=== PATIENT | male | born 1950 | race Caucasian/White ===

== ENCOUNTER 2017-07-22 00:23 | Inpatient (IN) | payer MEDICARE, MEDICAID ==
[~2017-07-22] VITALS: Ht 172.7 cm; Wt 58.5 kg
[2017-07-22] MEDS ORDERED: LISINOPRIL (01:14)
[2017-07-22 02:12] LABS: BASOPHILS # (AUTO) 0.03 x10^3/uL (0-0.1); BASOPHILS % (AUTO) 0 % (0-1); EOSINOPHILS # (AUTO) 0.18 x10^3/uL (0-0.4); EOSINOPHILS % (AUTO) 2 % (1-7); LYMPHOCYTES # (AUTO) 1.33 x10^3/uL (1-3.4); LYMPHOCYTES % (AUTO) 12 % (22-44); MD NO; MEAN CORPUSCULAR HEMOGLOBIN 29.9 pg (27.5-34.5); MEAN CORPUSCULAR HGB CONC 32.1 g/dL (33.2-36.2); MEAN CORPUSCULAR VOLUME 93.1 fL (81-97); MEAN PLATELET VOLUME 7.5 fL (7.4-10.4); MONOCYTES # (AUTO) 1.26 x10^3/uL (0.2-0.8); MONOCYTES % (AUTO) 11 % (2-9); NEUTROPHILS # (AUTO) 8.49 x10^3/uL (1.8-6.8); NEUTROPHILS % (AUTO) 75 % (42-75); PLATELET COUNT 304 x10^3/uL (130-400); RED BLOOD COUNT 4.25 x10^6/uL (4.38-5.82); RED CELL DISTRIBUTION WIDTH 16.7 % (9.4-14.8)
[2017-07-22 02:17] LABS: INTERNATIONAL NORMALIZED RATIO 1.04 (0.93-1.1); PROTHROMBIN TIME 10.7 Seconds (9.6-11.5)
[2017-07-22 02:21] LABS: ALANINE AMINOTRANSFERASE 51 U/L (12-78); ALBUMIN 2.2 g/dL (3.4-5.0); ANION GAP 9 mmol/L (5-15); CALCIUM 8.3 mg/dL (8.5-10.1); CHLORIDE 106 mmol/L (98-107); CREATININE 0.98 mg/dL (0.7-1.3)
[2017-07-22 02:35] LABS: ALKALINE PHOSPHATASE 1129 U/L (45-117); BILIRUBIN,TOTAL 0.6 mg/dL (0.2-1.0); TOTAL PROTEIN 6.9 g/dL (6.4-8.2)
[2017-07-22] MEDS ORDERED: SODIUM CHLORIDE 0.9% 1,000 ML IV ONE (05:56)
[2017-07-22] MEDS ORDERED: ONDANSETRON 2MG/ML, 2ML IVPush ONE (06:00)
[2017-07-22] MEDS ORDERED: MORPHINE SULFATE 4 MG/ML, 1ML IVPush PRN (06:00)
[2017-07-22 06:13] LABS: MICROSCOPIC INDICATED
[2017-07-22 06:14] LABS: CULTURE INDICATED? NO
[2017-07-22] MEDS ORDERED: OMNIPAQUE 350 MG/ML, 100ML BOTTLE ONE (06:41)
[2017-07-22] MEDS ORDERED: SODIUM CHLORIDE 0.9% 1,000 ML IV SCH (07:57)
[2017-07-22] MEDS ORDERED: POLYETHYLENE GLYCOL 17 GM PACKET PO PRN (08:00)
[2017-07-22] MEDS ORDERED: morphine SULFATE 10 MG/ML, 1ML IVPush PRN (08:00)
[2017-07-22] MEDS ORDERED: LABETALOL 5MG/ML, 20ML IVPush PRN (08:00)
[2017-07-22] MEDS ORDERED: GUAIFENESIN/DM 200-20MG, 10ML UDC PO PRN (08:00)
[2017-07-22 08:16] VITALS: BP 127/79
[2017-07-22 08:44] LABS: INTERNATIONAL NORMALIZED RATIO 1.04 (0.93-1.1); PROTHROMBIN TIME 10.7 Seconds (9.6-11.5)
[2017-07-22] MEDS ORDERED: SENNA/DOCUSATE TABLET PO SCH (09:00)
[2017-07-22] MEDS ORDERED: LORazepam 0.5MG TABLET PO PRN (11:30)
== END 2017-07-22 13:02 | disposition left against medical advice (07) | DRG 435 ==
LOC: ED 05:13 → EDIP 05:56 → 5SO 07:20
PROVIDERS: ADMIT Hospitalist; ATTEND Hospitalist
DX: C78.7 Secondary malignant neoplasm of liver and intrahepatic bile duct (principal); E43 Unspecified severe protein-calorie malnutrition; R18.0 Malignant ascites; C61 Malignant neoplasm of prostate; R16.0 Hepatomegaly, not elsewhere classified; J44.9 Chronic obstructive pulmonary disease, unspecified; D64.9 Anemia, unspecified; Z68.1 Body mass index [BMI] 19.9 or less, adult; F10.21 Alcohol dependence, in remission; F17.210 Nicotine dependence, cigarettes, uncomplicated; N26.1 Atrophy of kidney (terminal); D72.829 Elevated white blood cell count, unspecified; E78.5 Hyperlipidemia, unspecified; I10 Essential (primary) hypertension; I25.10 Atherosclerotic heart disease of native coronary artery without angina pectoris; I35.0 Nonrheumatic aortic (valve) stenosis; I70.8 Atherosclerosis of other arteries; I71.9 Aortic aneurysm of unspecified site, without rupture; N40.2 Nodular prostate without lower urinary tract symptoms; Z59.0 Homelessness; Z66 Do not resuscitate; N40.0 Benign prostatic hyperplasia without lower urinary tract symptoms; M89.8X9 Other specified disorders of bone, unspecified site
CPT/HCPCS: 36415; 71046; 74177; 76700; 80053; 81001; 83690; 83880; 84439; 85025; 85610; 93970; Q9967; J7030

== ENCOUNTER 2017-07-22 13:24 | Emergency (ER) | payer MEDICARE, MEDICAID ==
[~2017-07-22] VITALS: Ht 172.7 cm; Wt 58.7 kg
[~2017-07-22 13:24] MED LIST: LISINOPRIL
[2017-07-22] MEDS ORDERED: DIPH,PERTUSS(ACELL),TET VAC/PF 0.5 ML IM-VACC ONE ×2 (17:00→17:09)
[2017-07-22] MEDS ORDERED: BACITRACIN ZINC OINT 500U/GM, 0.9 GM ONE (18:01)
[2017-07-22 20:08] VITALS: BP 135/86
== END 2017-07-22 20:10 | disposition home or self-care (01) ==
LOC: ED 18:58
DX: S62.327A Displaced fracture of shaft of fifth metacarpal bone, left hand, initial encounter for closed fracture (principal); S20.211A Contusion of right front wall of thorax, initial encounter; S60.512A Abrasion of left hand, initial encounter; W19.XXXA Unspecified fall, initial encounter; Y93.89 Activity, other specified; Y92.89 Other specified places as the place of occurrence of the external cause; Y99.8 Other external cause status
CPT/HCPCS: 29125; 90471; 90715

== ENCOUNTER 2017-08-29 18:05 | Inpatient (IN) | payer MEDICARE, MEDICAID ==
[~2017-08-29] VITALS: Ht 172.7 cm; Wt 67.2 kg
[2017-08-29 18:52] LABS: BASOPHILS # (AUTO) 0.01 x10^3/uL (0-0.1); BASOPHILS % (AUTO) 0 % (0-1); EOSINOPHILS # (AUTO) 0.14 x10^3/uL (0-0.4); EOSINOPHILS % (AUTO) 2 % (1-7); LYMPHOCYTES # (AUTO) 1.58 x10^3/uL (1-3.4); LYMPHOCYTES % (AUTO) 18 % (22-44); MD NO; MEAN CORPUSCULAR HEMOGLOBIN 30.8 pg (27.5-34.5); MEAN CORPUSCULAR HGB CONC 33.1 g/dL (33.2-36.2); MEAN CORPUSCULAR VOLUME 92.9 fL (81-97); MEAN PLATELET VOLUME 7.5 fL (7.4-10.4); MONOCYTES # (AUTO) 0.96 x10^3/uL (0.2-0.8); MONOCYTES % (AUTO) 11 % (2-9); NEUTROPHILS # (AUTO) 6.19 x10^3/uL (1.8-6.8); NEUTROPHILS % (AUTO) 70 % (42-75); PLATELET COUNT 300 x10^3/uL (130-400); RED BLOOD COUNT 4.05 x10^6/uL (4.38-5.82)
[2017-08-29] MEDS ORDERED: RANI75TA12 PO (18:53)
[2017-08-29] MEDS ORDERED: SODIUM CHLORIDE FLUSH 10ML SYR IVF ONE (19:00)
[2017-08-29 19:02] LABS: ALANINE AMINOTRANSFERASE 57 U/L (12-78); ALBUMIN 2.2 g/dL (3.4-5.0); ANION GAP 9 mmol/L (5-15); CALCIUM 8.4 mg/dL (8.5-10.1); CHLORIDE 110 mmol/L (98-107); CREATININE 1.07 mg/dL (0.7-1.3)
[2017-08-29 19:06] LABS: BILIRUBIN,TOTAL 0.6 mg/dL (0.2-1.0); TOTAL PROTEIN 6.8 g/dL (6.4-8.2); TROPONIN I < 0.015 ng/mL (0.000-0.045)
[2017-08-29 19:16] LABS: ALKALINE PHOSPHATASE 1217 U/L (45-117)
[2017-08-29 21:42] VITALS: BP 114/72
[2017-08-29 22:00] VITALS: BP 114/72
[2017-08-29] MEDS ORDERED: POLYETHYLENE GLYCOL 17 GM PACKET PO PRN (22:00)
[2017-08-29] MEDS ORDERED: BISACODYL 10 MG SUPP PR PRN (22:00)
[2017-08-29] MEDS ORDERED: ONDANSETRON ODT 4 MG PO PRN (22:00)
[2017-08-29] MEDS: HEPARIN 5,000 UNITS/ML, 1ML SQ SCH (22:41)
[2017-08-29] MEDS: SODIUM CHLORIDE 0.9% 1,000 ML IV SCH (22:41)
[2017-08-29] MEDS: NICOTINE 7 MG/24 HR PATCH.TD24 TD SCH (22:42)
[2017-08-30] VITALS (10 sets, daily range): BP systolic 120–138; BP diastolic 70–84
[2017-08-30 05:07] LABS: BASOPHILS # (AUTO) 0.03 x10^3/uL (0-0.1); BASOPHILS % (AUTO) 0 % (0-1); EOSINOPHILS % (AUTO) 2 % (1-7); LYMPHOCYTES # (AUTO) 2.05 x10^3/uL (1-3.4); LYMPHOCYTES % (AUTO) 24 % (22-44); MD NO; MEAN CORPUSCULAR HEMOGLOBIN 30.7 pg (27.5-34.5); MEAN CORPUSCULAR VOLUME 92.9 fL (81-97); MEAN PLATELET VOLUME 7.9 fL (7.4-10.4); MONOCYTES # (AUTO) 0.95 x10^3/uL (0.2-0.8); MONOCYTES % (AUTO) 11 % (2-9); NEUTROPHILS # (AUTO) 5.26 x10^3/uL (1.8-6.8); NEUTROPHILS % (AUTO) 62 % (42-75); PLATELET COUNT 273 x10^3/uL (130-400); RED BLOOD COUNT 3.91 x10^6/uL (4.38-5.82); RED CELL DISTRIBUTION WIDTH 16.9 % (9.4-14.8)
[2017-08-30 05:19] LABS: ALBUMIN 2.1 g/dL (3.4-5.0); ANION GAP 8 mmol/L (5-15); CALCIUM 8.2 mg/dL (8.5-10.1); CHLORIDE 110 mmol/L (98-107)
[2017-08-30 05:27] LABS: ALANINE AMINOTRANSFERASE 51 U/L (12-78); BILIRUBIN,TOTAL 0.8 mg/dL (0.2-1.0); CREATININE 0.98 mg/dL (0.7-1.3); TOTAL PROTEIN 6.5 g/dL (6.4-8.2); TROPONIN I < 0.015 ng/mL (0.000-0.045)
[2017-08-30 05:39] LABS: ALKALINE PHOSPHATASE 1123 U/L (45-117)
[2017-08-30] MEDS: HEPARIN 5,000 UNITS/ML, 1ML SQ SCH ×3 (06:04→21:56)
[2017-08-30] MEDS: SENNA/DOCUSATE TABLET PO SCH (08:36)
[2017-08-30] MEDS: SODIUM CHLORIDE 0.9% 1,000 ML IV SCH ×2 (08:39→20:08)
[2017-08-30] MEDS ORDERED: FAMOTIDINE 20 MG TABLET PO SCH (09:00)
[2017-08-30 11:57] LABS: TROPONIN I < 0.015 ng/mL (0.000-0.045)
[2017-08-30] MEDS ORDERED: GADOBUTROL 7.5 MMOL/7.5 ML PFS ONE (12:52)
[2017-08-30] MEDS: NICOTINE 7 MG/24 HR PATCH.TD24 TD SCH (21:58)
[2017-08-31 02:34] VITALS: BP_SYST 111; BP_SYST 119; BP_SYST 128; BP_DIAS 74; BP_DIAS 75; BP_DIAS 78
[2017-08-31] MEDS: SODIUM CHLORIDE 0.9% 1,000 ML IV SCH ×2 (05:31→17:28)
[2017-08-31] MEDS: HEPARIN 5,000 UNITS/ML, 1ML SQ SCH ×2 (05:31→17:28)
[2017-08-31 05:55] LABS: BASOPHILS # (AUTO) 0.01 x10^3/uL (0-0.1); BASOPHILS % (AUTO) 0 % (0-1); EOSINOPHILS # (AUTO) 0.11 x10^3/uL (0-0.4); EOSINOPHILS % (AUTO) 1 % (1-7); LYMPHOCYTES % (AUTO) 16 % (22-44); MD NO; MEAN CORPUSCULAR HEMOGLOBIN 30.8 pg (27.5-34.5); MEAN CORPUSCULAR HGB CONC 33.3 g/dL (33.2-36.2); MEAN CORPUSCULAR VOLUME 92.6 fL (81-97); MEAN PLATELET VOLUME 7.7 fL (7.4-10.4); MONOCYTES # (AUTO) 1.06 x10^3/uL (0.2-0.8); MONOCYTES % (AUTO) 12 % (2-9); NEUTROPHILS # (AUTO) 6.16 x10^3/uL (1.8-6.8); NEUTROPHILS % (AUTO) 70 % (42-75); PLATELET COUNT 272 x10^3/uL (130-400); RED BLOOD COUNT 3.86 x10^6/uL (4.38-5.82); RED CELL DISTRIBUTION WIDTH 17.2 % (9.4-14.8)
[2017-08-31 06:04] LABS: ANION GAP 8 mmol/L (5-15); CALCIUM 8.1 mg/dL (8.5-10.1); CHLORIDE 110 mmol/L (98-107); CREATININE 1.02 mg/dL (0.7-1.3)
[2017-08-31 06:55] VITALS: BP 132/83
[2017-08-31] MEDS: SENNA/DOCUSATE TABLET PO SCH (09:00)
[2017-08-31 12:50] VITALS: BP 115/75
[2017-08-31] MEDS: ASPIRIN 81 MG TABLET EC PO SCH (17:28)
[2017-08-31] MEDS: CARVEDILOL 3.125 MG TABLET PO SCH (18:16)
[2017-08-31 19:40] VITALS: BP_SYST 128; BP_SYST 134; BP_SYST 136; BP_DIAS 72; BP_DIAS 78; BP_DIAS 80
[2017-08-31] MEDS: ATORVASTATIN 10 MG TABLET PO SCH (20:50)
[2017-08-31] MEDS: NICOTINE 7 MG/24 HR PATCH.TD24 TD SCH (23:00)
[2017-09-01] VITALS (7 sets, daily range): BP systolic 110–130; BP diastolic 58–78
[2017-09-01] MEDS: SODIUM CHLORIDE 0.9% 1,000 ML IV SCH (02:00)
[2017-09-01] MEDS: HEPARIN 5,000 UNITS/ML, 1ML SQ SCH ×3 (02:41→17:30)
[2017-09-01 05:17] LABS: BASOPHILS # (AUTO) 0.08 x10^3/uL (0-0.1); BASOPHILS % (AUTO) 1 % (0-1); EOSINOPHILS # (AUTO) 0.16 x10^3/uL (0-0.4); EOSINOPHILS % (AUTO) 2 % (1-7); LYMPHOCYTES # (AUTO) 1.45 x10^3/uL (1-3.4); LYMPHOCYTES % (AUTO) 19 % (22-44); MD NO; MEAN CORPUSCULAR HGB CONC 33.5 g/dL (33.2-36.2); MEAN CORPUSCULAR VOLUME 92.6 fL (81-97); MONOCYTES # (AUTO) 1.05 x10^3/uL (0.2-0.8); MONOCYTES % (AUTO) 14 % (2-9); NEUTROPHILS # (AUTO) 4.88 x10^3/uL (1.8-6.8); NEUTROPHILS % (AUTO) 64 % (42-75); PLATELET COUNT 235 x10^3/uL (130-400); RED BLOOD COUNT 3.71 x10^6/uL (4.38-5.82)
[2017-09-01 05:20] LABS: ANION GAP 8 mmol/L (5-15); CHLORIDE 110 mmol/L (98-107)
[2017-09-01 05:36] LABS: ALANINE AMINOTRANSFERASE 43 U/L (12-78); ALKALINE PHOSPHATASE 1061 U/L (45-117); BILIRUBIN,TOTAL 0.6 mg/dL (0.2-1.0); CREATININE 0.92 mg/dL (0.7-1.3); TOTAL PROTEIN 6.1 g/dL (6.4-8.2)
[2017-09-01] MEDS: ASPIRIN 81 MG TABLET EC PO SCH (05:42)
[2017-09-01] MEDS: CARVEDILOL 3.125 MG TABLET PO SCH ×2 (05:42→18:02)
[2017-09-01] MEDS: MAGNESIUM HYDROXIDE 8%, 30ML UDC PO SCH (09:00)
[2017-09-01] MEDS: SENNA/DOCUSATE TABLET PO SCH (09:00)
[2017-09-01] MEDS: LACTATED RINGERS 1,000 ML IV SCH ×2 (12:24→22:28)
[2017-09-01] MEDS: ATORVASTATIN 10 MG TABLET PO SCH (20:43)
[2017-09-01] MEDS: NICOTINE 7 MG/24 HR PATCH.TD24 TD SCH (22:28)
[2017-09-02 01:30] VITALS: BP 145/85
[2017-09-02] MEDS: HEPARIN 5,000 UNITS/ML, 1ML SQ SCH ×4 (01:30→21:00)
[2017-09-02 05:20] VITALS: BP 124/74
[2017-09-02] MEDS: CARVEDILOL 3.125 MG TABLET PO SCH ×2 (05:24→17:27)
[2017-09-02] MEDS: ASPIRIN 81 MG TABLET EC PO SCH (05:24)
[2017-09-02] MEDS ORDERED: ERGOCALCIFEROL 50,000 UNIT CAPSULE PO SCH (07:00)
[2017-09-02 07:16] VITALS: BP 128/78
[2017-09-02] MEDS: LACTATED RINGERS 1,000 ML IV SCH ×2 (08:00→21:05)
[2017-09-02] MEDS: MAGNESIUM HYDROXIDE 8%, 30ML UDC PO SCH (09:00)
[2017-09-02] MEDS: SENNA/DOCUSATE TABLET PO SCH (09:36)
[2017-09-02 13:44] VITALS: BP 123/75
[2017-09-02] MEDS ORDERED: MAGNESIUM CITRATE 300ML ORAL SOL PO ONE (14:00)
[2017-09-02 14:20] LABS: ALBUMIN 1.9 g/dL (3.4-5.0); ANION GAP 8 mmol/L (5-15); CALCIUM 7.6 mg/dL (8.5-10.1); CHLORIDE 109 mmol/L (98-107); CREATININE 0.95 mg/dL (0.7-1.3)
[2017-09-02 15:00] LABS: BASOPHILS # (AUTO) 0.03 x10^3/uL (0-0.1); BASOPHILS % (AUTO) 0 % (0-1); EOSINOPHILS # (AUTO) 0.15 x10^3/uL (0-0.4); EOSINOPHILS % (AUTO) 2 % (1-7); LYMPHOCYTES # (AUTO) 1.34 x10^3/uL (1-3.4); LYMPHOCYTES % (AUTO) 17 % (22-44); MD SCAN; MEAN CORPUSCULAR HEMOGLOBIN 30.3 pg (27.5-34.5); MEAN CORPUSCULAR HGB CONC 33.1 g/dL (33.2-36.2); MEAN CORPUSCULAR VOLUME 91.5 fL (81-97); MEAN PLATELET VOLUME 7.8 fL (7.4-10.4); MONOCYTES # (AUTO) 1.02 x10^3/uL (0.2-0.8); MONOCYTES % (AUTO) 13 % (2-9); NEUTROPHILS # (AUTO) 5.28 x10^3/uL (1.8-6.8); NEUTROPHILS % (AUTO) 68 % (42-75); PLATELET COUNT 254 x10^3/uL (130-400); RED BLOOD COUNT 3.74 x10^6/uL (4.38-5.82); RED CELL DISTRIBUTION WIDTH 16.7 % (9.4-14.8)
[2017-09-02] MEDS ORDERED: MAGNESIUM SULFATE PMX 2GM/50ML 50 ML IV ONE ×2 (15:00→16:30)
[2017-09-02 17:27] VITALS: BP 145/82
[2017-09-02 18:53] VITALS: BP 131/78
[2017-09-02] MEDS: ATORVASTATIN 10 MG TABLET PO SCH (21:05)
[2017-09-02] MEDS: NICOTINE 7 MG/24 HR PATCH.TD24 TD SCH (21:06)
[2017-09-03 03:27] VITALS: BP 137/78
[2017-09-03] MEDS: LACTATED RINGERS 1,000 ML IV SCH (06:41)
[2017-09-03] MEDS: CARVEDILOL 3.125 MG TABLET PO SCH (06:42)
[2017-09-03] MEDS: ASPIRIN 81 MG TABLET EC PO SCH (06:42)
[2017-09-03 07:42] VITALS: BP 106/68
[2017-09-03] MEDS: SENNA/DOCUSATE TABLET PO SCH (08:41)
[2017-09-03] MEDS: HEPARIN 5,000 UNITS/ML, 1ML SQ SCH (08:41)
[2017-09-03] MEDS: MAGNESIUM HYDROXIDE 8%, 30ML UDC PO SCH (08:41)
[2017-09-03] MEDS ORDERED: BISACODYL 5 MG EC TABLET PO SCH (09:00)
[2017-09-03] MEDS ORDERED: ERGO500017 PO (12:03)
[2017-09-03] MEDS ORDERED: ATOR10TA9 PO (12:03)
[2017-09-03] MEDS ORDERED: CARV3.1212 PO (12:03)
[2017-09-03] MEDS ORDERED: ASPI-621 PO (12:03)
[2017-09-03] MEDS ORDERED: PNEUMOCOCCAL 23 VACCINE IM-VACC ONE (13:30)
[2017-09-03] MEDS: NICOTINE 7 MG/24 HR PATCH.TD24 TD SCH (13:41)
== END 2017-09-03 14:08 | disposition hospice, home (50) | DRG 73 ==
LOC: ED 19:21 → EDIP 20:46 → 4EST 21:11
PROVIDERS: ADMIT Internal Medicine; ATTEND Internal Medicine
DX: G90.8 Other disorders of autonomic nervous system (principal); E43 Unspecified severe protein-calorie malnutrition; I11.0 Hypertensive heart disease with heart failure; C78.7 Secondary malignant neoplasm of liver and intrahepatic bile duct; C79.51 Secondary malignant neoplasm of bone; C61 Malignant neoplasm of prostate; I50.30 Unspecified diastolic (congestive) heart failure; D64.9 Anemia, unspecified; E86.0 Dehydration; J44.9 Chronic obstructive pulmonary disease, unspecified; E78.5 Hyperlipidemia, unspecified; I25.10 Atherosclerotic heart disease of native coronary artery without angina pectoris; R55 Syncope and collapse; F17.200 Nicotine dependence, unspecified, uncomplicated; I70.8 Atherosclerosis of other arteries; R97.20 Elevated prostate specific antigen [PSA]; I71.9 Aortic aneurysm of unspecified site, without rupture; N40.0 Benign prostatic hyperplasia without lower urinary tract symptoms; Z66 Do not resuscitate; I35.0 Nonrheumatic aortic (valve) stenosis; M89.8X9 Other specified disorders of bone, unspecified site; Z59.0 Homelessness; Z85.46 Personal history of malignant neoplasm of prostate; Z79.899 Other long term (current) drug therapy; Z79.82 Long term (current) use of aspirin
CPT/HCPCS: 36415; 70553; 71045; 76700; 80048; 80053; 82040; 82306; 83605; 83735; 83880; 84100; 84484; 85025; 86480; 90732; 93005; 93306; 93880; 99285; A9585; G0103; J1644; J3475; J7030; J7120